=== PATIENT | female | born 1995 | race Caucasian/White ===

== ENCOUNTER 2019-01-23 19:11 | Emergency (ER) | payer MEDICAID ==
[~2019-01-23] VITALS: Ht 177.8 cm; Wt 57.0 kg
--- NOTE | 2019-01-23 19:29 | NUR ---
FIRST CONTACT WITH PT. PT REPORTS BLACK STOOL AND GETTING WORSE OVER THE PAST 3 DAYS. PT C/O PAINFUL URINATION AND ABD PAIN WELL. PT'S AOX4. RESPS EVEN AND UNLABORED. BP/SPO2 MONITORS IN PLACE. CALL LIGHT WITHIN REACH. AWAITING ORDERES.
[2019-01-23] MEDS ORDERED: ONDANSETRON ODT 4 MG ONE (19:53)
--- NOTE | 2019-01-23 19:58 | NUR ---
PT MEDICATED PER EMAR. PT TOLERATED WELL.
[2019-01-23] MEDS ORDERED: ONDANSETRON ODT 4 MG PO ONE (20:00)
[2019-01-23] MEDS ORDERED: KETOROLAC 30 MG/1 ML ONE (20:08)
--- NOTE | 2019-01-23 20:13 | NUR ---
PT MEDICATED PER EMAR FOR PAIN. PT TOLERATED WELL.
[2019-01-23 20:14] LABS: BASOPHILS # (AUTO) 0.04 x10^3/uL (0-0.1); BASOPHILS % (AUTO) 1 % (0-1); EOSINOPHILS % (AUTO) 2 % (1-7); LYMPHOCYTES # (AUTO) 2.32 x10^3/uL (1-3.4); LYMPHOCYTES % (AUTO) 43 % (22-44); MD NO; MEAN CORPUSCULAR HEMOGLOBIN 30.4 pg (27.0-34.8); MEAN CORPUSCULAR HGB CONC 33.3 g/dL (32.4-35.8); MEAN CORPUSCULAR VOLUME 91.4 fL (80-100); MEAN PLATELET VOLUME 9.5 fL (7.4-10.4); MONOCYTES # (AUTO) 0.43 x10^3/uL (0.2-0.8); MONOCYTES % (AUTO) 8 % (2-9); NEUTROPHILS % (AUTO) 47 % (42-75); PLATELET COUNT 206 x10^3/uL (130-400); RED BLOOD COUNT 4.43 x10^6/uL (3.82-5.3)
[2019-01-23 20:18] LABS: CULTURE INDICATED? YES; MICROSCOPIC INDICATED
[2019-01-23 20:19] LABS: ANION GAP 5 mmol/L (5-15); CALCIUM 8.7 mg/dL (8.5-10.1); CHLORIDE 109 mmol/L (98-107); CREATININE 0.87 mg/dL (0.55-1.02)
[2019-01-23] MEDS ORDERED: KETOROLAC 30 MG/1 ML IM ONE (20:30)
[2019-01-23] MEDS ORDERED: HYDROmorphone 1 MG/ML, 1ML VIAL ONE (20:41)
--- NOTE | 2019-01-23 20:49 | NUR ---
PT MEDICATED PER EMAR FOR PAIN. PT TOLERATED WELL.
--- NOTE | 2019-01-23 20:53 | NUR ---
PT TO US NOW.
[2019-01-23] MEDS ORDERED: HYDROmorphone 1 MG/ML, 1ML INJ IM ONE (21:00)
[2019-01-23 21:17] VITALS: BP 116/90
--- NOTE | 2019-01-23 21:59 | NUR ---
Patient given discharge instructions and they have confirmed that they understand the instructions. Patient ambulatory with steady gait.
== END 2019-01-23 22:00 | disposition home or self-care (01) ==
LOC: ED 20:26
DX: N30.00 Acute cystitis without hematuria (principal); R11.0 Nausea
CPT/HCPCS: 36415; 76856; 80048; 81001; 81025; 85025; 87086; 96372; 99284; J1170; J1885; Q0162

== ENCOUNTER 2019-07-25 12:03 | Emergency (ER) | payer MEDICAID ==
[~2019-07-25] VITALS: Ht 175.3 cm; Wt 62.0 kg
[2019-07-25 12:09] VITALS: BP 106/70
--- NOTE | 2019-07-25 12:37 | NUR ---
AMBULATORY TO RADIOLOGY W/ STEADY GAIT; ACCOMPANIED BY OPERATIONS PROJECT MANAGER
[2019-07-25] MEDS ORDERED: ARIP2TAB17 PO (12:59)
[2019-07-25] MEDS ORDERED: SERT-238 PO (12:59)
[2019-07-25] MEDS ORDERED: GUAN1TAB PO (12:59)
== END 2019-07-25 13:30 | disposition home or self-care (01) ==
LOC: ED 12:25
DX: G89.11 Acute pain due to trauma (principal); M25.511 Pain in right shoulder; Z90.49 Acquired absence of other specified parts of digestive tract; X50.1XXA Overexertion from prolonged static or awkward postures, initial encounter; Y93.89 Activity, other specified; Y92.69 Other specified industrial and construction area as the place of occurrence of the external cause; Y99.8 Other external cause status
CPT/HCPCS: 99283

== ENCOUNTER 2020-01-02 04:24 | Emergency (ER) | payer MEDICAID ==
[~2020-01-02] VITALS: Ht 177.8 cm; Wt 55.3 kg
[~2020-01-02 04:24] MED LIST: ARIP2TAB17 PO; GUAN1TAB PO; SERT-238 PO
[2020-01-02] MEDS ORDERED: LORazepam 2 MG/ML, 1ML ONE (05:17)
[2020-01-02] MEDS ORDERED: ONDANSETRON 2MG/ML, 2ML ONE (05:17)
[2020-01-02] MEDS ORDERED: LORazepam 2 MG/ML, 1ML IVPush ONE (05:30)
[2020-01-02] MEDS ORDERED: SODIUM CHLORIDE FLUSH 10ML SYR IVF ONE (05:30)
[2020-01-02] MEDS ORDERED: ONDANSETRON 2MG/ML, 2ML IVPush ONE (05:30)
[2020-01-02 06:00] LABS: ALBUMIN 4.3 g/dL (3.4-5.0); ANION GAP 9 mmol/L (5-15); CALCIUM 9.2 mg/dL (8.5-10.1); CHLORIDE 113 mmol/L (98-107)
[2020-01-02 06:11] LABS: FREE T4 (FREE THYROXINE) 1.38 ng/dL (0.76-1.46)
[2020-01-02 06:14] LABS: BASOPHILS # (AUTO) 0.04 x10^3/uL (0-0.1); BASOPHILS % (AUTO) 1 % (0-1); EOSINOPHILS # (AUTO) 0.02 x10^3/uL (0-0.4); EOSINOPHILS % (AUTO) 0 % (1-7); LYMPHOCYTES # (AUTO) 2.36 x10^3/uL (1-3.4); LYMPHOCYTES % (AUTO) 33 % (22-44); MD NO; MEAN CORPUSCULAR HEMOGLOBIN 29.6 pg (27.0-34.8); MEAN CORPUSCULAR VOLUME 89.8 fL (80-100); MEAN PLATELET VOLUME 9.5 fL (7.4-10.4); MONOCYTES # (AUTO) 0.57 x10^3/uL (0.2-0.8); MONOCYTES % (AUTO) 8 % (2-9); NEUTROPHILS # (AUTO) 4.29 x10^3/uL (1.8-6.8); NEUTROPHILS % (AUTO) 59 % (42-75); PLATELET COUNT 271 x10^3/uL (130-400); RED BLOOD COUNT 4.74 x10^6/uL (3.82-5.3); RED CELL DISTRIBUTION WIDTH 13.1 % (9.6-15.2)
[2020-01-02 06:34] LABS: MICROSCOPIC NOT IND
[2020-01-02 06:44] LABS: AMPHETAMINE SCREEN, URINE Negative (Negative); BARBITURATE SCREEN, URINE Negative (Negative); BENZODIAZEPINE SCREEN, URINE Negative (Negative); CANNABINOID SCREEN, URINE Positive (Negative); COCAINE SCREEN, URINE Negative (Negative); METHADONE SCREEN, URINE Negative (Negative); OPIATE SCREEN, URINE Negative (Negative)
[2020-01-02 07:47] VITALS: BP 108/58
== END 2020-01-02 07:49 | disposition home or self-care (01) ==
LOC: ED 07:27
DX: F41.1 Generalized anxiety disorder (principal); R06.4 Hyperventilation; R00.2 Palpitations; Z88.2 Allergy status to sulfonamides; Z88.8 Allergy status to other drugs, medicaments and biological substances; Z88.1 Allergy status to other antibiotic agents; Z88.5 Allergy status to narcotic agent
CPT/HCPCS: 36415; 80048; 80307; 81003; 81025; 82040; 84439; 84443; 85025; 93005; 96374; 96375; 99284; J2060; J2405